=== PATIENT | female | born 1990 | race Caucasian/White ===

== ENCOUNTER 2017-01-03 10:45 | Inpatient (IN) | payer OTHER ==
[~2017-01-03] VITALS: Ht 152.4 cm; Wt 57.3 kg
[~2017-01-03 10:45] MED LIST: ATARAX,VISTARIL50 MG PO; CARBIDOPA/LEVOD1 TA1 PO; QUETIAPINE FUMA25 MG PO; ZOFRAN 4 MG ED2 TAB PO; ZOFRAN4 MG PO
[2017-01-03 10:50] VITALS: BP 130/70
[2017-01-03 11:06] LABS: BILIRUBIN NEGATIVE (NEGATIVE); BLOOD NEGATIVE (NEGATIVE); CLARITY CLEAR (CLEAR); COLOR YELLOW (YELLOW); GLUCOSE NEGATIVE (NEGATIVE); KETONE NEGATIVE (NEGATIVE); LEUKO ESTERASE NEGATIVE (NEGATIVE); NITRITE NEGATIVE (NEGATIVE); SPECIFIC GRAVITY 1.025 (1.005-1.030); UROBILINOGEN 0.2 E.U./dl (0.2-1.0)
[2017-01-03 11:12] LABS: BASO % 0.2 % (0.0-1.0); EOS % 0.2 % (1.0-4.0); HEMATOCRIT 36.3 % (37.0-47.0); HEMOGLOBIN 11.4 g/dl (12.0-16.0); LYMPH # 0.8 10*3/uL (1.3-4.4); LYMPH % 18.2 % (27.0-41.0); MEAN CELL VOLUME 88.3 fl (81.0-99.0); MEAN CORPUSCULAR HGB 27.7 pg (27.0-31.0); MEAN CORPUSCULAR HGB CONC 31.4 g/dl (33.0-37.0); MEAN PLATELET VOLUME 10.3 fl (9.6-12.3); MONO # 0.2 10*3/uL (0.1-1.0); MONO % 4.4 % (3.0-9.0); NEUT # 3.2 10*3/uL (2.3-7.9); NEUT % 76.8 % (47.0-73.0); PLATELET COUNT AUTOMATED 208 10*3/uL (130-400); RED BLOOD COUNT 4.11 10*6/uL (4.10-5.10); RED CELL DISTRI WIDTH 13.6 % (0-14.5); WHITE BLOOD COUNT 4.1 10*3/uL (4.8-10.8)
[2017-01-03 11:15] LABS: URINE AMPHETAMINES < 1000 (1000ng/ml); URINE BARBITURATES < 200 (200ng/ml); URINE BENZODIAZEPINES > 200 (200ng/ml); URINE CANNABINOIDS (THC) > 50 (50ng/ml); URINE COCAINE < 300 (300ng/ml); URINE METHADONE < 300 (300ng/ml); URINE OPIATES > 300 (300ng/ml)
[2017-01-03 11:18] LABS: BACTERIA 1+; MUCOUS 1+
[2017-01-03 11:19] LABS: URINE PHENCYCLIDINE < 25 (25ng/ml)
[2017-01-03 11:27] LABS: ALBUMIN 3.5 gm/dl (3.1-4.5); ALKALINE PHOSPHATASE 65 U/L (45-117); BUN 9 mg/dl (7-24); CHLORIDE 106 mmol/L (98-107); CREATININE 0.69 mg/dL (0.55-1.02); POTASSIUM 3.7 mmol/L (3.5-5.1); SGOT/AST 13 IU/L (3-35); SGPT/ALT 33 U/L (12-78); SODIUM 140 mmol/L (136-145); TOTAL PROTEIN 8.9 gm/dL (6.4-8.2)
[2017-01-03 11:30] VITALS: BP 118/59
[2017-01-03 11:33] LABS: ETHYL ALCOHOL < 3.0 mg/dl (<3)
[2017-01-03 11:34] LABS: ACETAMINOPHEN (TYLENOL) < 2.0 ug/ml (10-30)
[2017-01-03 12:00] VITALS: BP 118/59
[2017-01-03 16:00] VITALS: BP 101/54
[2017-01-03 20:00] VITALS: BP 101/59
[2017-01-04] VITALS: BP 106/56
[2017-01-04 08:00] VITALS: BP 102/62
[2017-01-04 12:00] VITALS: BP 104/56
[2017-01-04 16:00] VITALS: BP 102/50
[2017-01-04 20:00] VITALS: BP 104/54
[2017-01-05 08:00] VITALS: BP 108/52
[2017-01-05 12:00] VITALS: BP 109/56
[2017-01-05 16:00] VITALS: BP 100/50
[2017-01-05 19:30] VITALS: BP 103/69
[2017-01-06 08:00] VITALS: BP 122/56
[2017-01-06] MEDS ORDERED: ZOFRAN4 MG PO (10:00)
[2017-01-06] MEDS ORDERED: ATARAX,VISTARIL50 MG PO (10:00)
== END 2017-01-06 14:00 | disposition home or self-care (01) | DRG 897 ==
LOC: ED 10:45 → EDHOLD 11:06 → 4E 11:06
PROVIDERS: Family Medicine; Nurse Practitioner Family; ADMIT Internal Medicine
DX: F11.23 Opioid dependence with withdrawal (principal); B18.2 Chronic viral hepatitis C; F41.9 Anxiety disorder, unspecified; G25.81 Restless legs syndrome; R03.0 Elevated blood-pressure reading, without diagnosis of hypertension; Z72.0 Tobacco use; Z78.9 Other specified health status; Z79.899 Other long term (current) drug therapy; Z98.51 Tubal ligation status; Z81.1 Family history of alcohol abuse and dependence; Z81.3 Family history of other psychoactive substance abuse and dependence